=== PATIENT | female | born 1975 | race Caucasian/White ===

== ENCOUNTER 2016-06-09 07:01 | Emergency (ER) ==
[2016-06-09 07:26] LABS: MANUAL DIFF NEEDED? NO
[2016-06-09 07:27] LABS: BASO% 0.2 % (0.0-0.8); EOS# 0.39 X1000 (0.0-0.7); EOS% 3.3 % (0.0-10.0); HEMATOCRIT 38.4 % (37.0-47.0); IMM GRAN# 0.01 X1000 (0.0-0.04); IMM GRAN% 0.1 % (0.0-0.5); LYMPH# 2.98 X1000 (1.2-3.4); LYMPH% 25.5 % (20.5-51.1); MCH 30.1 PG (27-31); MCHC 33.9 g/dL (33-37); MCV 88.9 FL (81-99); MONO# 0.87 X1000 (0.11-0.59); MONO% 7.4 % (1.7-9.3); MPV 10.2 FL (7.4-10.4); NEUT% 63.5 % (42.2-75.2); PLT 368 X1000 (130-400); RBC 4.32 XMIL (4.2-5.4)
[2016-06-09 07:30] LABS: URINE SOURCE CLEAN CATCH
[2016-06-09 07:35] LABS: BILIRUBIN URINE NEGATIVE (NEGATIVE); BLOOD URINE NEGATIVE (NEGATIVE); CLARITY CLEAR (CLEAR); COLOR YELLOW; GLUCOSE URINE NEGATIVE (NEGATIVE); LEUKOCYTES URINE TRACE (NEGATIVE); NITRITE URINE NEGATIVE (NEGATIVE); PH URINE 6.5; PROTEIN URINE TRACE mg/dL (NEGATIVE); UROBILINOGEN URINE NORMAL
[2016-06-09 07:45] LABS: AGAP 13; ALBUMIN 4.5 g/dL (3.5-5.0); ALKALINE PHOSPHATASE 68 U/L (32-104); AMYLASE 49 U/L (20-200); BUN 24 mg/dL (8-22); CALCIUM 9.4 mg/dL (8.8-10.2); CHLORIDE 104 mmol/L (98-107); COSMO 282; GOT 18 U/L (10-30); GPT 13 U/L (10-36); LIPASE 55 U/L (13-60); POTASSIUM 3.7 mmol/L (3.5-5.1); SODIUM 139 mmol/L (136-145); TCO2 23 mmol/L (25-35); TOTAL PROTEIN 7.2 g/dL (6.3-8.3)
[2016-06-09 07:47] LABS: URINE CRYSTAL CA OXALATE PRESENT /HPF; URINE CULTURE PL NEEDED? YES; URINE EPITHELIAL CELLS <10 /HPF (<10); URINE WBC <10 /HPF (<10)
[2016-06-09] MEDS ORDERED: NS 1,000 ML IV ONE (08:16)
[2016-06-09] MEDS ORDERED: ZOFRAN IV ONE (08:16)
[2016-06-09 08:21] LABS: OCCULT BLOOD 1 NEGATIVE (NEGATIVE)
--- NOTE | 2016-06-09 09:21 | PROVIDER DOCUMENTATION ---
HPI-Abdominal Pain/GI Problem - General Source: patient - History of Present Illness-ABD Nature of Presenting Problems: pt is 41 y/o F present to the Er with complaints of vomiting x12 and diarrhea episodes x12. pt states her stools were dark and she was having some belly pain. these symptoms have been occur x2 days. pt in no apparent distress, denies fever, chills. Abdominal Pain Onset Location: reports: generalized abdomen Pain Radiation: reports: no radiation Quality of Pain: reports: cramping Severity in ED: reports: moderate Onset/Duration: reports: 2 days ago Timing: reports: still present Activities at Onset: reports: none Exposure to sick contacts?: No Modifying Factors: improves with: nothing Associated Symptoms: reports: diarrhea, vomiting. denies: cough, fever/chills Last BM: other (today) Dark Stools Present?: reports: black Rectal Bleeding: reports: blood mixed with stool # of Vomiting Episodes: 12 Emesis Description: reports: none Bruising or Bleeding Gums?: No Similar Symptoms Previously?: No Recently seen or treated by another doctor?: No <Katja Josue - Last Filed: 06/09/16 09:16> <Tree Sorto - Last Filed: 06/09/16 09:27> - General Chief Complaint: Abdominal Pain Stated Complaint: ABD PAIN/N/V/D Time Seen by Provider: 06/09/16 08:16 Allergies/Adverse Reactions: Patient Allergies Allergy/AdvReac Type Severity Reaction Status Date / Time No Known Allergies Allergy Verified 03/16/16 13:21 Home Medications: Home Medication List Medication Instructions Recorded Confirmed Last Taken Type Amoxicillin [Amoxil] 500 mg PO BID #20 capsule 04/03/16 04/07/16 04/06/16 Rx Famotidine [Pepcid] 20 mg PO DAILY #20 tablet 04/07/16 Unknown Rx Ketorolac [Toradol] 10 mg PO Q6H PRN PRN #20 tablet 04/07/16 Unknown Rx Promethazine [Phenergan] 25 mg PO Q6H PRN PRN #20 tablet 04/07/16 Unknown Rx Promethazine [Phenergan] 25 mg [place] Q6H PRN PRN #14 supp 04/07/16 Unknown Rx Acetaminophen with Codeine 1 each PO Q6H PRN PRN #14 tablet 05/07/16 Unknown Rx [Tylenol with Codeine #3 Tablet] Promethazine [Phenergan] 1 - 2 tab PO Q6H PRN PRN #18 tablet 05/07/16 Unknown Rx Diphenoxylate/Atropine [Lomotil] 1 each PO 4XDAY PRN PRN #20 tablet 06/09/16 Unknown Rx Promethazine [Phenergan] 1 - 2 tab PO Q6H PRN PRN #18 tablet 06/09/16 Unknown Rx Review of Systems - Adult - REVIEW OF SYSTEMS - ADULT Constitutional: denies: chills, fever Eyes: reports: no symptoms reported Ears, Nose, Mouth & Throat: reports: no symptoms reported Cardiovascular: reports: no symptoms reported Respiratory: denies: cough, dyspnea on exertion, excessive sputum production Gastrointestinal: reports: diarrhea, vomiting. denies: constipation, difficulty swallowing, frequent heartburn Genitourinary: reports: no symptoms reported Musculoskeletal: denies: bone pain, back pain, frequent leg cramps Integumentary: reports: no symptoms reported Neurological: reports: no symptoms reported Psychiatric: reports: no symptoms reported Endocrine: reports: no symptoms reported Hematologic/Lymphatic: reports: no symptoms reported Allergic/Immunologic: reports: no symptoms reported All Other Systems: Reviewed and Negative <Katja Josue - Last Filed: 06/09/16 09:16> Past History - Adult - PAST MEDICAL HISTORY-ADULT Review of Records: reports: Nursing Assessment Review Major Childhood Illnesses: reports: denies history Cardiovascular: reports: denies history Respiratory: reports: denies history Gastrointestinal: reports: GERD Obstetrical/Gynecological: reports: denies history Genitourinary: reports: denies history Musculoskeletal: reports: denies history Neurological: reports: headaches/migraines Endocrine/Immune: reports: denies history Other Conditions: reports: denies history - PRIOR SURGERIES/PROCEDURES Surgical/Procedure History: reports: BTL - PRIOR HOSPITALIZATIONS Prior Hospitalizations: reports: none - IMMUNIZATION STATUS Childhood Immunizations: See Nurse Assessment Flu Vaccine: See Nurse Assessment - FAMILY HISTORY Family History: reviewed, not pertinent - SOCIAL HISTORY Smoking: cigarettes, less than 1 pack/day Provider spent 3-5 mins advising pt. on dangers of tobacco.: Discussed manners to quit use, and f/u contacts for add'l counseling. Substance Use: alcohol Alcohol Use Frequency: occasionally <Katja Josue - Last Filed: 06/09/16 09:16> Physical Exam-General - PHYSICAL EXAM-ADULT Initial Vital Signs Reviewed: Yes - CONSTITUTIONAL General Appearance: appears well, alert, no apparent distress - EYES Eyes: PERRL/EOMI, pink conjunctivae - HEAD, EARS, NOSE, MOUTH & THROAT HENMT: moist mucous membranes - NECK Neck: non-tender, full range of motion - RESPIRATORY Respiratory: chest non-tender, lungs clear, normal breath sounds, no pleuratic chest pain, no respiratory distress, no accessory muscle use - CARDIOVASCULAR Cardiovascular: normal peripheral pulses, regular rate, rhythm, no edema, no gallop, no JVD, no murmur - GASTROINTESTINAL (ABDOMEN) Abdominal Exam: normal bowel sounds, non tender, soft - MUSCULOSKELETAL Extremity: normal range of motion, non-tender, normal gait, normal inspection, no pedal edema, no calf tenderness, normal capillary refill - SKIN Integumentary: normal color, normal turgor, warm/dry - NEUROLOGIC Neurologic: grossly normal, no motor/sensory deficits - PSYCHIATRIC Psych/Mental Status: normal mood/affect, normal thought content, normal thought process, oriented x 3 <Katja Josue - Last Filed: 06/09/16 09:16> Progress - PLAN OF CARE/RESULTS Progress/Plan/Lab Results: Laboratory Tests 06/09/16 06/09/16 06/09/16 07:23 07:23 07:24 WBC 11.68 H RBC 4.32 Hgb 13.0 Hct 38.4 MCV 88.9 MCH 30.1 MCHC 33.9 RDW Std Deviation 12.9 Plt Count 368 MPV 10.2 Immature Gran % (Auto) 0.1 Neut % (Auto) 63.5 Lymph % (Auto) 25.5 Stone % (Auto) 7.4 Eos % (Auto) 3.3 Baso % (Auto) 0.2 Immature Gran # (Auto) 0.01 Neut # (Auto) 7.41 H Lymph # (Auto) 2.98 Stone # (Auto) 0.87 H Eos # (Auto) 0.39 Baso # (Auto) 0.02 Sodium 139 Potassium 3.7 Chloride 104 Carbon Dioxide 23 L Anion Gap 13 BUN 24 H Creatinine 0.7 Estimated GFR/1.73 m2 > 60 BUN/Creatinine Ratio 34 Glucose 98 Calculated Osmolality 282 Calcium 9.4 Total Bilirubin 0.20 AST 18 ALT 13 Alkaline Phosphatase 68 Total Protein 7.2 Albumin 4.5 Globulin 3.0 Albumin/Globulin Ratio 2.0 Amylase 49 Lipase 55 Urine Source CLEAN CATCH Urine Color YELLOW Urine Clarity CLEAR Urine pH 6.5 Ur Specific [place] 1.020 Urine Protein TRACE A Urine Ketones NEGATIVE Urine Blood NEGATIVE Urine Nitrite NEGATIVE Urine Bilirubin NEGATIVE Urine Urobilinogen NORMAL Urine Microscopic RBC Not Reportable Urine WBC TRACE A Urine Microscopic WBC <10 Ur Epithelial Cells <10 Urine Crystals CA OXALATE PRESENT Urine Bacteria 1+ Urine Glucose NEGATIVE Urine Test Stool Occult Blood 06/09/16 06/09/16 07:24 08:10 WBC RBC Hgb Hct MCV MCH MCHC RDW Std Deviation Plt Count MPV Immature Gran % (Auto) Neut % (Auto) Lymph % (Auto) Stone % (Auto) Eos % (Auto) Baso % (Auto) Immature Gran # (Auto) Neut # (Auto) Lymph # (Auto) Stone # (Auto) Eos # (Auto) Baso # (Auto) Sodium Potassium Chloride Carbon Dioxide Anion Gap BUN Creatinine Estimated GFR/1.73 m2 BUN/Creatinine Ratio Glucose Calculated Osmolality Calcium Total Bilirubin AST ALT Alkaline Phosphatase Total Protein Albumin Globulin Albumin/Globulin Ratio Amylase Lipase Urine Source Urine Color Urine Clarity Urine pH Ur Specific [place] Urine Protein Urine Ketones Urine Blood Urine Nitrite Urine Bilirubin Urine Urobilinogen Urine Microscopic RBC Urine WBC Urine Microscopic WBC Ur Epithelial Cells Urine Crystals Urine Bacteria Urine Glucose Urine Test NEGATIVE Stool Occult Blood NEGATIVE Orders Category Date Time Status Saline Loc DIRECTED Care 06/09/16 07:06 Active NPO Diet 06/09/16 07:06 Active FLAT/UPRIGHT ABD/1 VIEW CHEST [RAD] Stat Exams 06/09/16 07:06 Taken AMYLASE [CHEM] Stat Lab 06/09/16 07:23 Completed CBC WITH ELECTRONIC DIFF [HEME] Stat Lab 06/09/16 07:23 Completed COMPREHENSIVE METABOLIC PANEL [CHEM] Stat Lab 06/09/16 07:23 Completed LIPASE [CHEM] Stat Lab 06/09/16 07:23 Completed OCCULT BLOOD SCREEN STOOL PL Stat Lab 06/09/16 08:10 Completed TEST-URINE [PREG] Stat Lab 06/09/16 07:[address] W/POSS RFLX CULT [URINALYSIS] Stat Lab 06/09/16 07:24 Completed URINE CULTURE [RM] Routine Lab 06/09/16 07:47 Ordered 0.9% Sodium Chloride Inj [Ns] 1,000 ml Med 06/09/16 08:16 Discontinued IV 999 mls/hr Ondansetron [Zofran] Med 06/09/16 08:16 Discontinued 4 mg IV NOW ONE Vital Signs - 24 hr 06/09/16 06/09/16 07:03 07:13 Temperature 97.8 F Pulse Rate 71 Pulse Rate [ 73 Sitting] Pulse Rate [ 80 Standing] Pulse Rate [ 68 Supine] Respiratory 18 Rate Blood Pressure 127/84 Blood Pressure 124/90 [Sitting] Blood Pressure 127/89 [Standing] Blood Pressure 128/80 [Supine] O2 Sat by Pulse 100 Oximetry - XRAY 1 XRAY: Bilateral XRAY Study: Chest, Abdomen (flat/upright abd/1 view chest) Impression: Normal (NAD) XRAY Interpretation: NAD <Katja Josue - Last Filed: 06/09/16 09:16> Departure <Katja Josue - Last Filed: 06/09/16 09:16> - Departure Time of Disposition Order: 09:27 Certified Medical Emergency: Emergent <Tree Sorto - Last Filed: 06/09/16 09:27> - Departure DIAGNOSIS: Gastroenteritis Disposition: HOME 01 Condition: Stable Additional Instructions: ED Follow Up Instructions: You have been treated by a care provider in the Emergency Department. These instructions are being provided to you so you can have an understanding of how to care for yourself upon discharge. Upon discharge from the Emergency Department, you are responsible for making arrangements for follow-up care by a physician of your choice. Take all prescribed medications as directed. Return to the Emergency Department immediately for any new or worsening symptoms. You may call the Physician Referral phone number at [phone] to obtain a list of Physicians who are taking new patients. Prescriptions: Diphenoxylate/Atropine [Lomotil] 1 each PO 4XDAY PRN PRN #20 tablet PRN Reason: Diarrhea Promethazine [Phenergan] 1 - 2 tab PO Q6H PRN PRN #18 tablet PRN Reason: Vomiting Referrals: Victor Manuel Mccall MD [STAFF PHYSICIAN] - None,PCP [Primary Care Provider] - Forms: Return to School/Parent Work Instructions: Viral Gastroenteritis, [id number], Atropine; Diphenoxylate tablets, Promethazine tablets Attestation - Scribe Verification/Attestation Scribe:: Katja Josue Acting as Scribe for:: rTee Sorto Scribe documention review:: This chart was documented by a scribe and accurately reflects the service the provider performed and the decisions made by the provider. <Katja Josue - Last Filed: 06/09/16 09:16> Physician Attestation
[2016-06-09 09:31] VITALS: BP 128/87
--- NOTE | 2016-06-09 09:47 | Diag Imaging Result Document ---
PROCEDURE NAME: FLAT/UPRIGHT ABD/1 VIEW CHEST - 06/09/2016 ACUTE ABDOMINAL SERIES: INDICATION: Abdomen pain. FINDINGS: Supine and erect views of the abdomen reveal a nonobstructed bowel gas pattern. No mass effect or organomegaly is appreciated. The PA chest reveals a calcified granuloma, left lung base. No free air. Heart size is normal. There are no acute infiltrates. IMPRESSION: Nonspecific acute abdominal series.
== END 2016-06-09 09:30 | disposition home or self-care (01) ==
LOC: P.ED 07:01
DX: K52.9 Noninfective gastroenteritis and colitis, unspecified (principal); R11.10 Vomiting, unspecified; R19.7 Diarrhea, unspecified; R19.5 Other fecal abnormalities; R10.84 Generalized abdominal pain; K92.1 Melena; K21.9 Gastro-esophageal reflux disease without esophagitis; F17.210 Nicotine dependence, cigarettes, uncomplicated; Z71.6 Tobacco abuse counseling
CPT/HCPCS: 74022; 80053; 81001; 81025; 82150; 82270; 83690; 85025; 87088; 96361; 96374; J2405; J7030